=== PATIENT | male | born 1950 ===

== ENCOUNTER 2017-11-09 12:09 | Emergency (ER) | payer SELFPAY ==
[2017-11-09 12:13] VITALS: BP 165/98; PULSE 98; RESP 20; TEMP 97.9; O2SAT 100
[2017-11-09] MEDS ORDERED: Naproxen 500 MG TAB PO ONE ×2 (12:19→12:22)
--- NOTE | 2017-11-09 12:34 | ED PDOC ---
HPI: General Adult Time Seen by Provider: 11/09/17 12:17 Chief Complaint (Nursing): Back Pain Chief Complaint (Provider): Neck Pain History Per: Patient, EMS History/Exam Limitations: no limitations Onset/Duration Of Symptoms: Mins (x25 minutes ago) Have you had recent travel within the past 21 days to any of the following countries: [place], [place], [place] or [place]?: No Current Symptoms Are (Timing): Still Present Additional Complaint(s): Fco Mtz, a 67 year old male, with a past medical history of hypertension and diabetes is brought into the ED by EMS complaining of neck pain. The patient reports that earlier today he was unloading boxes at work, but he was lifting a heavier load than usual. He states that approximately 1 hour after doing the lifting he developed pain and stiffness to the neck. As per patient, the pain was initially radiating down the left shoulder. Denies fever, trauma, chest pain, weakness and headache. PMD: FAMILY PROVIDER,NO Past Medical History Reviewed: Historical Data, Nursing Documentation, Vital Signs Vital Signs: Last Vital Signs Temp 97.9 F 11/09/17 12:12 Pulse 98 H 11/09/17 12:12 Resp 20 11/09/17 12:12 BP 165/98 H 11/09/17 12:12 Pulse Ox 100 11/09/17 13:05 - Medical History PMH: Diabetes, HTN (does not take medication) - Family History Family History: States: Unknown Family Hx - Home Medications Home Medications: Ambulatory Orders Medication Instructions Recorded Cyclobenzaprine [Cyclobenzaprine 10 mg PO Q8 PRN #30 tab 11/09/17 HCl] Naproxen [Naprosyn] 500 mg PO BID PRN #30 tab 11/09/17 - Allergies Allergies/Adverse Reactions: Allergies Allergy/AdvReac Type Severity Reaction Status Date / Time No Known Allergies Allergy Verified 11/09/17 12:12 Review of Systems ROS Statement: Except As Marked, All Systems Reviewed And Found Negative Constitutional: Negative for: Fever Cardiovascular: Negative for: Chest Pain Musculoskeletal: Positive for: Neck Pain (neck pain and stiffness) Neurological: Negative for: Weakness, Headache Physical Exam - Reviewed Nursing Documentation Reviewed: Yes Vital Signs Reviewed: Yes - Physical Exam Appears: Positive for: Non-toxic, No Acute Distress (mild painful distress) Head Exam: Positive for: ATRAUMATIC, NORMAL INSPECTION, NORMOCEPHALIC Skin: Positive for: Normal Color, Warm, Dry. Negative for: Rash Eye Exam: Positive for: Normal appearance Neck: Negative for: Normal (b/l paracervical muscle spasm with no vertebral or cervical tenderness ), Painless ROM (pain with active ROM of the neck) Cardiovascular/Chest: Positive for: Regular Rate, Rhythm, Chest Non Tender. Negative for: Tachycardia Respiratory: Positive for: Normal Breath Sounds. Negative for: Wheezing, Respiratory Distress Gastrointestinal/Abdominal: Positive for: Normal Exam, Bowel Sounds, Soft. Negative for: Tenderness Back: Positive for: Normal Inspection. 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 Negative for: Motor/Sensory Deficits - ECG O2 Sat by Pulse Oximetry: 100 (RA) Pulse Ox Interpretation: Normal - Radiology X-Ray: Interpreted by Me (C-spine) X-Ray Interpretation: Other (moderate DJD, no fx) Medical Decision Making Medical Decision Makin Initial Impression 67 y/o male presenting with neck pain and stiffness Initial Plan: * Flexeril 10mg PO * Naproxen 500mg PO * RAD Cervical Spine AP and Lat * Reevaluation Scribe Attestation Documented by Zoya Scott acting as a scribe for Kali Kowalski PA-C. Scribe Attestation All medical record entries made by the Scribe were at my direction and personally dictated by me. I have reviewed the chart and agree that the record accurately reflects my personal performance of the history, physical exam, medical decision making, and the department course for this patient. I have also personally directed, reviewed, and agree with the discharge instructions and disposition. Disposition - Clinical Impression Clinical Impression: Torticollis - Patient ED Disposition Is Patient to be Admitted: No Counseled Patient/Family Regarding: Studies Performed, Diagnosis - Disposition Referrals: John Do III, MD [Staff Provider] - [facility] [place] [Outside] Disposition: Routine/Home Disposition Time: 13:00 Condition: STABLE Additional Instructions: Follow up with your PMD or Dr. Do for further evaluation. Prescriptions: Cyclobenzaprine [Cyclobenzaprine HCl] 10 mg PO Q8 PRN #30 tab PRN Reason: Muscle Spasm Naproxen [Naprosyn] 500 mg PO BID PRN #30 tab PRN Reason: Pain Instructions: Muscle Spasm (ED), Arthritis (ED) Forms: [employer] ([place]ian), [facility] ED School/Work Excuse Print Language: SLOVAK - POA Present On Arrival: None
--- NOTE | 2017-11-09 13:56 | RAD ---
PROCEDURE: Cervical Spine Radiographs. HISTORY: Pain COMPARISON: None. FINDINGS: BONES: Alignment maintained. No fracture. Dens Intact. DISC SPACES: Multilevel disc space narrowing and degenerative spondylosis. SOFT TISSUES: Normal. No prevertebral soft tissue swelling. OTHER FINDINGS: None. IMPRESSION: No fracture.
== END 2017-11-09 13:12 | disposition home or self-care (01) ==
LOC: H.ER 12:09
DX: M43.6 Torticollis (principal); E11.9 Type 2 diabetes mellitus without complications; I10 Essential (primary) hypertension